=== PATIENT | male | born 1995 | race Caucasian/White ===

== ENCOUNTER 2022-08-03 16:14 | Emergency (ER) | payer BC, SELFPAY ==
[2022-08-03 16:43] VITALS: BP 135/85; PULSE 106; RESP 24; TEMP 37.8; O2SAT 96; BMI 21.3
--- NOTE | 2022-08-03 17:17 | CRLHL7_ITS ---
For Patients: As a result of the Century Cures Act, medical imaging exams and procedure reports are released immediately into your electronic medical record. You may view this report before your referring provider. If you have questions, please contact your health care provider. INDICATION: Shortness of breath. TECHNIQUE: Chest 2 views. COMPARISON: None. FINDINGS: Cardiovascular and mediastinum: Heart size and vasculature are normal in caliber and appearance. Lungs and pleural spaces: Bibasilar multifocal consolidation. No sign of pleural effusion. No pneumothorax. Bones and soft tissues: No significant findings. IMPRESSION: Bibasilar multifocal pneumonia. Dictated by Jin Mcguire MD @ 08/03/2022 6:50:27 PM (Electronically Signed)
--- NOTE | 2022-08-03 17:34 | ED.GENADULT ---
HPI - General Adult General Chief complaint: Cough Stated complaint: Fever Cough Congestion Time Seen by Provider: 08/03/22 16:47 History of Present Illness HPI narrative: Pt presents with 2 weeks of low grade fever, general malaise, fatigue and nonproductive cough. Pt was seen in urgent care last week and tested negative for COVID. Pt does not smoke and is up to date on his vaccinations. Pt has had no rash, headache, stiff neck or joint pain. No other significant symptoms or sick contacts. No chest pain, orthopnea or PND. Related Data Home Medications Medication Instructions Recorded Confirmed ibuprofen 200 mg tablet 400 mg PO Q4-6H PRN 08/03/22 08/03/22 Allergies Allergy/AdvReac Type Severity Reaction Status Date / Time No Known Drug Allergies Allergy Verified 08/03/22 18:10 Review of Systems Status of ROS: Reports: 10 or more systems reviewed and unremarkable except as noted in History and below [facility] Social History Smoking Status: Never smoker Do you use any of these nicotine containing products: None Second hand tobacco smoke exposure: No How often do you have a drink containing alcohol: never AUDIT-C Alcohol total score: 0 Non-prescribed substance use: denies use Exam Narrative: Exam Narrative: EXAM GENERAL: Patient appears comfortable and well. Very thin. EYES: No scleral icterus. ENT: Tympanic membranes and oropharynx normal. THYROID: no thyroid nodules or thyromegaly. LYMPH: No supraclavicular or cervical lymphadenopathy. SKIN: Visible skin seen during exam normal or with benign process only. EXT: No dependent lower extremity pedal edema. HEART: Regular rate and rhythm with no murmurs, rubs, or gallops. LUNGS: Scattered rhonchi bilaterally. ABD: Soft, non tender, non distended. PSYCH: Good eye contact, speech is not pressured. Const: Vital Signs, click to edit/add: Vital Signs - 24 hr 08/03/22 16:43 Temperature 100.0 F H Pulse Rate [Right Pulse Oximeter] 106 H Respiratory Rate 24 Blood Pressure [Ri ght Upper Arm] 135/85 Pulse Oximetry 96 Oxygen Delivery Me thod Room Air Course Course Hospital Course: Chest X ray, Viral swab, CBC, D-dimer, CMP ordered. Reevaluation(s) Reevaluation #1: Pt noted to have an elevaed D-dimer. Will send for CT of Chest PE study. Time: 18:04 Reevaluation #2: Bilateral Pneumonia noted on both chest x ray and CT. Results reviewed with pt. Time: 19:37 Vital Signs Vital signs: Initial Vital Signs Temperature 100.0 F H 08/03/22 16:43 Temperature Source Temporal Artery Scan 08/03/22 16:43 Pulse Rate 106 H 08/03/22 16:43 Respiratory Rate 24 08/03/22 16:43 Blood Pressure 135/85 08/03/22 16:43 Blood Pressure Mean 101 08/03/22 16:43 Blood Pressure Position Sitting 08/03/22 16:43 Pulse Oximetry 96 08/03/22 16:43 Oxygen Delivery Method 08/03/22 16:43 Vital Signs Temperature 100.0 F H 08/03/22 16:43 Pulse Rate 106 H 08/03/22 16:43 Respiratory Rate 24 08/03/22 16:43 Blood Pressure 135/85 08/03/22 16:43 Pulse Oximetry 96 08/03/22 16:43 Oxygen Delivery Method 08/03/22 16:43 Temperature 100.0 F H 08/03/22 16:43 Pulse Rate 106 H 08/03/22 16:43 Respiratory Rate 24 08/03/22 16:43 Blood Pressure 135/85 08/03/22 16:43 Pulse Oximetry 96 08/03/22 16:43 Oxygen Delivery Method 08/03/22 16:43 Medical Decision Making MDM Narrative Medical decision making narrative: Pt up to date on vaccinations presents with 2 weeks of cough malaise and congestion. D dimer elevated. CT of the chest shows multifocal pnuemonia with no PE. Labs otherwise reassuring with mild elevation of WBC noted. Pt treated with Oral Levaquin as he is not hypoxic. Close outpt follow up. Differential Diagnosis Differential Diagnosis: COVID, Pneumonia, [place], URI, Bronchitis. Lab Data Labs: Lab Results 08/03/22 08/03/22 08/03/22 Range/Units 17:30 17:32 17:32 WBC 11.34 H (4.50-11.00) K/uL RBC 4.28 L (4.30-5.90) m/uL Hgb 12.6 L (13.5-17.5) gm/dL Hct 35.8 L (37.0-53.0) % MCV 84 (80-100) fL MCH 29 (26-34) pg MCHC 35 (32-36) gm/dL RDW Coeff of Reema 11.6 (11.5-15.5) % Plt Count 260 (140-440) K/uL Neut % (Auto) 78.4 H (42.0-72.0) % Lymph % (Auto) 10.1 L (20-44) % [place] % (Auto) 10.6 (0.0-11.0) % Eos % (Auto) 0.3 (0.0-7.0) % Baso % (Auto) 0.2 (0.0-3.0) % Neut # (Auto) 8.90 H (1.7-7.0) K/uL Lymph # (Auto) 1.10 (0.90-2.90) K/uL [place] # (Auto) 1.20 H (0.00-0.90) K/UL Eos # (Auto) 0.00 (0.00-0.50) K/uL Baso # (Auto) 0.00 (0.00-0.30) K/uL Abs Immat Gran (auto) 0.05 (0.00-0.30) K/uL D-Dimer Quant (PE/DVT) 1.50 H (0.00-0.50) ug/ml Sodium (135-149) mmol/L Potassium (3.6-5.1) mmol/L Chloride (96-114) mmol/L Carbon Dioxide (20-32) mmol/L BUN (5-24) mg/dL Creatinine (0.5-1.5) mg/dL Estimated Creat Clear Estimated GFR ml/min Glucose (60-115) mg/dL Calcium (8.4-10.6) mg/dL Total Bilirubin (0.1-1.5) mg/dL AST (12-35) U/L ALT (4-50) U/L Alkaline Phosphatase (40-150) U/L Total Protein (6.0-8.3) g/dL Albumin (3.3-5.0) g/dL SARS-CoV-2 (PCR) Negative SARS-CoV-2 (Negative) Monoscreen (Negative) Influenza Type A (PCR) Negative PCR FLU A (Negative) Influenza Type B (PCR) Negative PCR FLU B (Negative) RSV (PCR) Negative PCR RSV (Negative) 08/03/22 08/03/22 Range/Units 17:32 17:32 WBC (4.50-11.00) K/uL RBC (4.30-5.90) m/uL Hgb (13.5-17.5) gm/dL Hct (37.0-53.0) % MCV (80-100) fL MCH (26-34) pg MCHC (32-36) gm/dL RDW Coeff of Reema (11.5-15.5) % Plt Count (140-440) K/uL Neut % (Auto) (42.0-72.0) % Lymph % (Auto) (20-44) % [place] % (Auto) (0.0-11.0) % Eos % (Auto) (0.0-7.0) % Baso % (Auto) (0.0-3.0) % Neut # (Auto) (1.7-7.0) K/uL Lymph # (Auto) (0.90-2.90) K/uL [place] # (Auto) (0.00-0.90) K/UL Eos # (Auto) (0.00-0.50) K/uL Baso # (Auto) (0.00-0.30) K/uL Abs Immat Gran (auto) (0.00-0.30) K/uL D-Dimer Quant (PE/DVT) (0.00-0.50) ug/ml Sodium 135 (135-149) mmol/L Potassium 3.5 L (3.6-5.1) mmol/L Chloride 99 (96-114) mmol/L Carbon Dioxide 22 (20-32) mmol/L BUN 10 (5-24) mg/dL Creatinine 0.8 (0.5-1.5) mg/dL Estimated Creat Clear 139.76 Estimated GFR 127 ml/min Glucose 112 (60-115) mg/dL Calcium 9.7 (8.4-10.6) mg/dL Total Bilirubin 1.0 (0.1-1.5) mg/dL AST 41 H (12-35) U/L ALT 43 (4-50) U/L Alkaline Phosphatase 146 (40-150) U/L Total Protein 7.9 (6.0-8.3) g/dL Albumin 4.5 (3.3-5.0) g/dL SARS-CoV-2 (PCR) (Negative) Monoscreen Negative (Negative) Influenza Type A (PCR) (Negative) Influenza Type B (PCR) (Negative) RSV (PCR) (Negative) Discharge Plan Discharge Clinical Impression: Pneumonia Patient Disposition: Home, Self-Care Condition: Stable Instructions: Pneumonia (ED) Additional Instructions: Roxy as directed Follow up with Dr. Monge next week. Activity Level: No Restrictions Discharge Diet: Regular Prescriptions: No Action ibuprofen 200 mg tablet 400 mg PO Q4-6H PRN Stand Alone Forms: [employer] Info Instructions
[2022-08-03 17:39] LABS: Basophils Percent Auto 0.2 % (0.0-3.0); Eosinophils Percent Auto 0.3 % (0.0-7.0); Hematocrit 35.8 % (37.0-53.0); Hemoglobin* 12.6 gm/dL (13.5-17.5); Immature Granulocytes Abs Auto 0.05 K/uL (0.00-0.30); Lymphocytes Percent Auto 10.1 % (20-44); Mean Corpuscular HGB Conc 35 gm/dL (32-36); Mean Corpuscular Hemoglobin 29 pg (26-34); Mean Corpuscular Volume 84 fL (80-100); Monocytes Percent Auto 10.6 % (0.0-11.0); Neutrophils Percent Auto 78.4 % (42.0-72.0); Platelet Count* 260 K/uL (140-440); RDW Coefficient of Variation % 11.6 % (11.5-15.5); Red Blood Count 4.28 m/uL (4.30-5.90); White Blood Count* 11.34 K/uL (4.50-11.00)
[2022-08-03 17:41] LABS: Slide Review Reflex No
[2022-08-03 17:50] LABS: Albumin* 4.5 g/dL (3.3-5.0); Chloride* 99 mmol/L (96-114)
[2022-08-03 17:51] LABS: Mono Screen* Negative (Negative); Potassium* 3.5 mmol/L (3.6-5.1); Sodium* 135 mmol/L (135-149)
[2022-08-03 17:53] LABS: Aspartate Amino Transferase* 41 U/L (12-35); Carbon Dioxide* 22 mmol/L (20-32); Creatinine* 0.8 mg/dL (0.5-1.5); Est. Creatinine Clearance* 139.76; Estimated Glomerular Filt Rate 127 ml/min; Total Protein* 7.9 g/dL (6.0-8.3)
[2022-08-03 17:54] LABS: Alanine Aminotransferase* 43 U/L (4-50); Alkaline Phosphatase* 146 U/L (40-150); Blood Urea Nitrogen* 10 mg/dL (5-24); Calcium* 9.7 mg/dL (8.4-10.6); Glucose* 112 mg/dL (60-115)
--- NOTE | 2022-08-03 18:03 | CRLHL7_ITS ---
For Patients: As a result of the Century Cures Act, medical imaging exams and procedure reports are released immediately into your electronic medical record. You may view this report before your referring provider. If you have questions, please contact your health care provider. INDICATION: Elevated D-dimer. TECHNIQUE: CT chest PE was acquired with 100 cc Omnipaque 350 IV contrast. COMPARISON: None. FINDINGS: Heart and vasculature: Contrast opacification of the pulmonary arterial tree is adequate. No sign of pulmonary embolism. Heart size is normal. Thoracic aorta and pulmonary artery are normal in caliber. Lungs and pleura: Bibasilar multifocal pneumonia. No pleural effusions, pleural thickening, or pneumothorax. Lymph nodes/mediastinum: No mediastinal, hilar, or axillary adenopathy. Chest wall: No masses. Upper abdomen: No acute or significant findings. Bones: Unremarkable for age. IMPRESSION: No pulmonary embolism as questioned. Bibasilar multifocal pneumonia. Please note that all CT scans at this facility use dose modulation, iterative reconstruction, and/or weight-based dosing when appropriate to reduce radiation dose to as low as reasonably achievable. Dictated by Jin Mcguire MD @ 08/03/2022 7:07:48 PM (Electronically Signed)
[2022-08-03 19:14] LABS: PCR FLU A Negative PCR FLU A (Negative); PCR FLU B Negative PCR FLU B (Negative); PCR RSV Negative PCR RSV (Negative)
[2022-08-03 19:36] LABS: SARS PCR* Negative SARS-CoV-2 (Negative)
[2022-08-03] MEDS: levoFLOXacin 500 MG TABLET PO (20:11)
== END 2022-08-03 20:14 | disposition home or self-care (01) ==
PROVIDERS: Emergency Provider Internal Medicine
DX: J18.9 Pneumonia, unspecified organism (principal)
CPT/HCPCS: 36415; 71046; 71260; 80053; 85025; 85379; 86308; 87502; 87634; 87635; 99283; 99284; 99285; A9270; Q9967